=== PATIENT | male | born 1965 | race Caucasian/White ===

== ENCOUNTER 2020-06-05 23:49 | Emergency (ER) | payer MEDICARE, MEDICAID ==
[~2020-06-05] VITALS: Ht 170.2 cm; Wt 69.0 kg
[2020-06-05 23:53] VITALS: BP 167/104
[2020-06-06] MEDS ORDERED: NAPROXEN 250MG TABLET PO NR (03:15)
== END 2020-06-06 04:15 | disposition home or self-care (01) ==
LOC: ER 23:49
DX: M79.662 Pain in left lower leg (principal); M79.661 Pain in right lower leg
CPT/HCPCS: 99283